=== PATIENT | male | born 1990 | race Caucasian/White ===

== ENCOUNTER 2024-02-12 18:53 | Emergency (ER) | payer OTHER ==
[~2024-02-12] VITALS: Ht 182.9 cm; Wt 131.8 kg
[~2024-02-12 18:53] MED LIST: IBUP-1986 PO
[2024-02-12 19:14] LABS: BASOPHILS # (AUTO) 0.1 X10'3 (0-0.2); EOSINOPHILS # (AUTO) 0.2 X10'3 (0-0.9); MONOCYTES # (AUTO) 0.7 X10'3 (0-0.9); NEUTROPHILS # (AUTO) 5.4 X10'3 (1.8-7.7)
[2024-02-12 19:16] LABS: BASOPHILS % (AUTO) 0.7 % (0-1); HEMATOCRIT 48.2 % (42.0-52.0); HEMOGLOBIN 16.3 g/dl (14.0-17.9); LYMPHOCYTES # (AUTO) 3.5 X10'3 (1.1-4.8); LYMPHOCYTES % (AUTO) 35.5 % (21-51); MEAN CORPUSCULAR HEMOGLOBIN 29.1 PG (27.0-31.0); MEAN CORPUSCULAR HGB CONC 33.8 g/dL (33.0-36.5); MEAN PLATELET VOLUME 9.9 FL (7.4-10.4); MONOCYTES % (AUTO) 7.2 % (2-12); NEUTROPHILS % (AUTO) 54.6 % (42-75); RED CELL DISTRIBUTION WIDTH 13.8 % (11.5-14.5); WHITE BLOOD COUNT 9.9 X10'3 (4.5-11.0)
[2024-02-12 19:30] LABS: APTT 28 SECONDS (22-32); INR 1.1 INR; PROTHROMBIN TIME 11.4 SECONDS (9.0-12.0)
[2024-02-12 19:38] LABS: ALBUMIN 4.5 G/DL (3.4-5.0); ANION GAP 11 (8-16); BLOOD UREA NITROGEN 15 MG/DL (7-18); BUN/CREATININE RATIO 10.3 (10.0-20.0); CALCIUM 9.4 MG/DL (8.5-10.1); CHLORIDE 107 MMOL/L (99-107); CREATININE 1.46 MG/DL (0.60-1.10); GLUCOSE 107 MG/DL (70-104); POTASSIUM 3.6 MMOL/L (3.5-5.1); PRO BRAIN NATRIURETIC PEPTIDE < 30 PG/ML (0-125); SODIUM 141 MMOL/L (135-145); TOTAL CARBON DIOXIDE 23.1 MMOL/L (24-32); eCRCL 80 ML/MIN; eGFR 56 ML/MIN
[2024-02-12 19:50] LABS: PLATELET COUNT 218 X10'3 (140-440)
[2024-02-12 19:55] LABS: CREATINE KINASE 174 U/L (39-308)
[2024-02-12] MEDS: normal saline 1000ML IV soln IVB ONE (20:11)
[2024-02-12 21:52] LABS: BILIRUBIN,URINE SMALL (Neg); CLARITY,URINE CLEAR (Clear); COLOR,URINE YELLOW (Yellow); GLUCOSE, URINE NEGATIVE (Neg); KETONES,URINE 40 mg/dl (Neg); LEUKOCYTE ESTERASE ,URINE NEGATIVE (Neg); NITRITES, URINE NEGATIVE (Neg); OCCULT BLOOD,URINE NEGATIVE (Neg); PROTEIN,URINE NEGATIVE (Neg); UROBILINOGEN,URINE 0.2 E.U/dL (0.2-1.0)
[2024-02-12 22:11] LABS: URINE AMPHETAMINE SCREEN NEGATIVE (Neg); URINE BARBITUATE SCREEN NEGATIVE (Neg); URINE BENZODIAZEPINES SCREEN NEGATIVE (Neg); URINE CANNABINOID SCREEN POSITIVE (Neg); URINE COCAINE SCREEN NEGATIVE (Neg); URINE METHADONE SCREEN NEGATIVE (Neg); URINE PHENCYCLIDINE SCREEN NEGATIVE (Neg)
[2024-02-12 22:16] LABS: UA COLLECTION TYPE URINAL
[2024-02-12 22:39] VITALS: BP 154/93; PULSE 85; RESP 16; TEMP 98.2; O2SAT 96
== END 2024-02-12 22:41 | disposition home or self-care (01) ==
LOC: ER 20:08
DX: R53.1 Weakness (principal); I69.923 Fluency disorder following unspecified cerebrovascular disease; R79.1 Abnormal coagulation profile; Z79.1 Long term (current) use of non-steroidal anti-inflammatories (NSAID); Z98.890 Other specified postprocedural states
CPT/HCPCS: 36415; 70450; 71045; 80048; 80305; 81003; 82542; 82550; 82948; 83880; 84484; 85025; 85610; 85730; 86885; 86900; 86901; 93005; 96360; 99285; J7030

== ENCOUNTER 2025-01-23 16:18 | Emergency (ER) | payer OTHER ==
[~2025-01-23] VITALS: Ht 182.9 cm; Wt 129.7 kg
[2025-01-23 16:47] VITALS: TEMP 99.4
--- NOTE | 2025-01-23 16:54 | VISIT NOTE ---
ED Rapid Medical Assessment History This is a 34-year-old gentleman who comes in for evaluation of near syncopal episode that occurred while sitting. Resolved spontaneously. Not accompanied by chest pain or difficulty breathing. Shortly after the episode he had developed started. He does have known history of bipolar, essential tremor, compliant with his medications. He smokes nicotine, quit marijuana a week ago. No palliating or aggravating factors were elicited with the gentleman. This is similar in identical today episode of near-syncope and started he had developed a year ago at which point he had received evaluation. He even followed up with neurology who told him this was not a neurological issue. Exam: GENERAL: Awake, alert, oriented, GCS 15, no apparent distress, non-toxic appearing, answers questions, follows commands appropriately. HEENT: Atraumatic, normocephalic, pupils equal, extraocular muscles intact, sclerae anicteric, mucus membranes moist, oropharynx is clear, no stridor. NECK: supple, full active range of motion, trachea midline, no thyromegaly, no lymphadenopathy, no JVD. CARDIOVASCULAR: regular rate/rhythm, no murmurs/gallops/rubs, Pulses are 2+ in all extremities and symmetric. Capillary refill less than 2 seconds. PULMONARY: Nonlabored, good air movement ,no respiratory distress, speaking in full sentences, clear to auscultation bilaterally, no wheezing, no ronchi, no rales, no accessory muscle use. GASTROINTESTINAL: Soft, non-tender, non-distended, normal active bowel sounds, no organomegaly, no pulsatile masses, no CVA tenderness. NEUROLOGIC: Lucid with normal mental status. Normal facial symmetry. Moves all extremities symmetrically and with purpose. No truncal ataxia. Speech is fluid without evidence of dysarthria or aphasia, no focal deficits appreciated. MUSCULOSKELETAL: There is full range of motion of all extremities. There is no joint pain or joint swelling or joint erythema. There is no muscle pain or tenderness or swelling. EXTREMITIES: warm, well-perfused, no cyanosis, no clubbing, no edema, no acute deformities. Skin: warm, dry, no rashes or lesions, no jaundice, no petechiae orpurpura. No ecchymosis. PSYCHIATRIC: Normal affect, normal insight, normal concentration. Focused exam: [] NEURO: M/S: Alert and oriented Face: EOMI, face and pharynx with normal sensation and function Motor: Normal strength throughout Sensation: Normal sensation throughout Speech: Normal Cerebellar: Normal coordination Normal gait Assessment and Plan Differential includes but not limited to vasovagal versus orthostatic versus malignant arrhythmia syncope, supratentorial event, starter, clinically there is no evidence of lateralizing signs to suspect a stroke. No evidence of trauma. Dehydration, electrolyte derangement are also in differential diagnosis. We will obtain labs, EKG, Advanced imaging of the head. EKG was obtained and interpreted by myself shows sinus rhythm 79, normal TX interval, narrow QRS, no QT prolongation, normal axis, no STEMI. FLAQUITA STILES DO January 23, 2025 16:54
[2025-01-23] MEDS: normal saline 1000ML IV soln IVB ONE (17:00)
[2025-01-23 17:10] LABS: BASOPHILS # (AUTO) 0.1 X10'3 (0-0.2); EOSINOPHILS # (AUTO) 0.6 X10'3 (0-0.9); EOSINOPHILS % (AUTO) 6.4 % (0-6); HEMATOCRIT 47.2 % (42.0-52.0); HEMOGLOBIN 16.3 g/dl (14.0-17.9); LYMPHOCYTES # (AUTO) 3.9 X10'3 (1.1-4.8); LYMPHOCYTES % (AUTO) 41.9 % (21-51); MEAN CORPUSCULAR HEMOGLOBIN 28.9 PG (27.0-31.0); MEAN CORPUSCULAR HGB CONC 34.6 g/dL (33.0-36.5); MEAN CORPUSCULAR VOLUME 83.6 FL (78-98); MEAN PLATELET VOLUME 10.1 FL (7.4-10.4); MONOCYTES # (AUTO) 0.8 X10'3 (0-0.9); MONOCYTES % (AUTO) 8.7 % (2-12); NEUTROPHILS # (AUTO) 3.9 X10'3 (1.8-7.7); PLATELET COUNT 197 X10'3 (140-440); RED BLOOD COUNT 5.65 X10'6 (4.70-6.10); RED CELL DISTRIBUTION WIDTH 13.8 % (11.5-14.5); WHITE BLOOD COUNT 9.2 X10'3 (4.5-11.0)
[2025-01-23 17:22] LABS: ALANINE AMINOTRANSFERASE 57 U/L (12-78); ALBUMIN 3.9 G/DL (3.4-5.0); ALBUMIN/GLOBULIN RATIO 1.2 (1.1-1.5); ALKALINE PHOSPHATASE 61 IU/L (46-116); ANION GAP 9 (8-16); ASPARTATE AMINO TRANSFERASE 29 U/L (10-37); BILIRUBIN,TOTAL 0.4 MG/DL (0.1-1.0); BLOOD UREA NITROGEN 13 MG/DL (7-18); BUN/CREATININE RATIO 9.2 (10.0-20.0); CALCIUM 8.5 MG/DL (8.5-10.1); CHLORIDE 104 MMOL/L (99-107); CREATININE 1.42 MG/DL (0.60-1.10); GLUCOSE 104 MG/DL (70-104); POTASSIUM 3.8 MMOL/L (3.5-5.1); SODIUM 137 MMOL/L (135-145); TOTAL CARBON DIOXIDE 24.4 MMOL/L (24-32); TOTAL PROTEIN 7.1 G/DL (6.4-8.2); eCRCL 82 ML/MIN; eGFR 58 ML/MIN
--- NOTE | 2025-01-23 17:27 | RADIOLOGY REPORT ---
EXAM: CT CT HEAD INDICATION: Disequilibrium TECHNIQUE: CT of the head without intravenous contrast. Coronal and sagittal reformatted images are s ubmitted. Radiation Dose : 1. Head: CT Dose: CTDI volume is 70.1 mGy. Dose-length product is 1249 mGy*cm The dose indicators for CT are the volume Computed Tomography (CT) Dose Index (CTDIvol) and the Dose Length Product (DLP), and are measured in units of mGy and mGy-cm, respectively. These indicators are not patient dose, but values generated from the CT scanner acquisition factors. The report includes radiation exposure data for exposures received during this examination. All CT scans at this medical facility are performed using dose modulation techniques as appropriate to a performed exam including the following: Automated exposure control was utilized; adjustment of the MA and/or KV according to patient size; and use of iterative reconstruction technique. COMPARISON: CT CT STROKE ALERT on DOS: 02/12/24 FINDINGS: There is no evidence of acute intracranial hemorrhage, extra-axial collection, mass effect, midline s hift, herniation or hydrocephalus. The ventricles, sulci and cisterns are age appropriate. The weldon-white differentiation is intact. The visualized paranasal sinuses and mastoid air cells are clear. No depressed calvarial fracture. The surrounding soft tissues are unremarkable. IMPRESSION: 1. No evidence of acute intracranial abnormality. HS:Y
[2025-01-23 17:28] LABS: MAGNESIUM 1.9 MG/DL (1.5-2.4); PRO BRAIN NATRIURETIC PEPTIDE < 30 PG/ML (0-125)
--- NOTE | 2025-01-23 17:35 | RADIOLOGY REPORT ---
CHEST RADIOGRAPH Indication: Weakness, near-syncope Technique: Single frontal view of the chest was obtained Comparison: DI CHEST,SINGLE VIEW on DOS: 02/12/24 FINDINGS: Lines and Tubes: None Lungs: No focal consolidation. Pleura: No effusion. No pneumothorax. Cardiomediastinal contours: Unremarkable Bones: No acute osseous abnormality. IMPRESSION: 1. No acute cardiopulmonary disease.
[2025-01-23 17:52] VITALS: BP 138/88; PULSE 69; RESP 14; O2SAT 99
--- NOTE | 2025-01-23 17:58 | Physician Documentation ---
History of Present Illness ~ Chief Complaint: Syncope Stated Complaint: NEAR SYNCOPAL Time Seen by MD: 17:53 Primary Medical Doctor: MAX Mode of Arrival: EMS HPI This is a very pleasant 34-year-old gentleman who presents for evaluation of a near syncopal episode that occurred while he was sitting. He developed sensation of in pitting loss of consciousness. No obvious trigger provocation. He had experienced this in the past but typically with the position change. This when was while he remains sitting. No obvious palliating or aggravating factors were elicited with the patient. Did not attempt to treat it. This happened in the past about a year ago at which point he had received evaluation including a neurologist which and told him this was not a neurologic problem. Incidentally he also had developed, just like last time, a stutter. No focal deficits. Denies any chest pain or difficulty breathing accompanying this. No concern for alcohol or illicit substances use. He vapes. He quit marijuana a week ago. Medication Reconciliation Allergies: Coded Allergies: No Known Allergies (Unverified , 02/12/24) Scheduled Ibuprofen (Ibuprofen), 1 TAB PO Q8H Past Medical History Past Medical History: Bipolar Past Surgical History: tonsillectomy Lives In: Home Occupation: employed Review of Systems ROS 10 point review of systems was performed and unless noted above in HPI is negative for acute process/complaint. Physical Exam Vital Signs: Temperature: 99.4, Source: Oral, Heart Rate: 69, Respiratory Rate: 14, BP: 138/88, Pulse Oximetry: 99, Weight: 129.700 Physical Exam GENERAL: Awake, alert, oriented, GCS 15, no apparent distress, non-toxic appearing, answers questions, follows commands appropriately. HEENT: Atraumatic, normocephalic, pupils equal, extraocular muscles intact, sclerae anicteric, mucus membranes moist, oropharynx is clear, no stridor. NECK: supple, full active range of motion, trachea midline, no thyromegaly, no lymphadenopathy, no JVD. CARDIOVASCULAR: regular rate/rhythm, no murmurs/gallops/rubs, Pulses are 2+ in all extremities and symmetric. Capillary refill less than 2 seconds. PULMONARY: Nonlabored, good air movement ,no respiratory distress, speaking in full sentences, clear to auscultation bilaterally, no wheezing, no ronchi, no rales, no accessory muscle use. GASTROINTESTINAL: Soft, non-tender, non-distended, normal active bowel sounds, no organomegaly, no pulsatile masses, no CVA tenderness. NEUROLOGIC: Lucid with normal mental status. Normal facial symmetry. Moves all extremities symmetrically and with purpose. No truncal ataxia. Speech is fluid without evidence of dysarthria or aphasia, no focal deficits appreciated. MUSCULOSKELETAL: There is full range of motion of all extremities. There is no joint pain or joint swelling or joint erythema. There is no muscle pain or tenderness or swelling. EXTREMITIES: warm, well-perfused, no cyanosis, no clubbing, no edema, no acute deformities. Skin: warm, dry, no rashes or lesions, no jaundice, no petechiae orpurpura. No ecchymosis. PSYCHIATRIC: Normal affect, normal insight, normal concentration. Focused exam: NEURO: M/S: Alert and oriented Face: EOMI, face and pharynx with normal sensation and function Motor: Normal strength throughout Sensation: Normal sensation throughout Speech: Normal Cerebellar: Normal coordination Normal gait Progress Results/Orders Results/Orders Orders - FLAQUITA STILES DO Electrocardiogram (01/23/25 16:32) Chest,Single View (01/23/25 16:50) Ct Head (01/23/25 17:00) Hs Troponin I W Calculations (01/23/25 18:50) Completed Orders - FLAQUITA STILES DO Cbc/Diff (01/23/25 16:50) Chest,Single View (01/23/25 16:50) PBNP (01/23/25 16:50) MG (01/23/25 16:50) Normal Saline 1000ml (Sodium Chloride 10 (01/23/25 16:50) Ct Head (01/23/25 17:00) CMP (01/23/25 16:50) Hs Troponin I W Calculations (01/23/25 16:50) Medications Received in ER Medications (Trade) Dose Ordered Sig/Yesi Route PRN Reason Start Time Stop Time Status Last Admin Dose Admin (sodium chloride 1000ml IV soln) 1,000 ml ONCE ONCE IVB 01/23/25 16:50 01/23/25 16:52 DC 01/23/25 17:00 1,000 ML Vital Signs 01/23/25 01/23/25 01/23/25 01/23/25 16:31 16:42 16:47 17:33 Temp 99.4 99.4 Pulse 76 73 65 Resp 10 15 14 16 B/P (MAP) 144/89 150/96 (114) 135/86 (102) Pulse Ox 98 98 99 01/23/25 17:52 Pulse 69 Resp 14 B/P (MAP) 138/88 (105) Pulse Ox 99 Laboratory Tests Test 01/23/25 16:59 White Blood Count 9.2 Red Blood Count 5.65 Hemoglobin 16.3 Hematocrit 47.2 Mean Corpuscular Volume 83.6 Mean Corpuscular Hemoglobin 28.9 Mean Corpuscular Hemoglobin Concent 34.6 Red Cell Distribution Width 13.8 Platelet Count 197 Mean Platelet Volume 10.1 Neutrophils (%) (Auto) 42.0 Lymphocytes (%) (Auto) 41.9 Monocytes (%) (Auto) 8.7 Eosinophils (%) (Auto) 6.4 H Basophils (%) (Auto) 1.0 Neutrophils # (Auto) 3.9 Lymphocytes # (Auto) 3.9 Monocytes # (Auto) 0.8 Eosinophils # (Auto) 0.6 Basophils # (Auto) 0.1 CBC Comment Sodium Level 137 Potassium Level 3.8 Chloride Level 104 Carbon Dioxide Level 24.4 Anion Gap 9 Blood Urea Nitrogen 13 Creatinine 1.42 H Estimated GFR/1.73 m2 58 BUN/Creatinine Ratio 9.2 L Glucose Level 104 Calcium Level 8.5 Magnesium Level 1.9 Total Bilirubin 0.4 Aspartate Amino Transf (AST/SGOT) 29 Alanine Aminotransferase (ALT/SGPT) 57 Alkaline Phosphatase 61 Troponin I High Sensitivity 4 Pro-B-Type Natriuretic Peptide < 30 Total Protein 7.1 Albumin 3.9 Globulin 3.2 Albumin/Globulin Ratio 1.2 Chemistry Comments Medical Decision Making Findings Facility Status: ED Holds, E process The plan was discussed with the patient, who demonstrates clear understanding of the plan and is in agreement with the plan unless otherwise noted in the chart. All questions have been answered, all concerns were addressed unless otherwise documented. I was available throughout their ED stay for frequent reassessment and qu estions. Differential Diagnoses (considered and possible or likely): [Vasovagal versus orthostatic versus less likely malignant arrhythmia with a syncope, unlikely to be PE as he is PERC negative, unlikely to be ACS or CHF.] ??Differential Diagnoses (considered and unlikely, not requiring evaluation currently): [No evidence of lateralizing signs to suspect a stroke] MDM Data Please see HPI for the following: Independent Historians and external Records Review. Historian: [Patient] Independent Historians: ?[None] Medication Management: [Reviewed medication list] Social History and determinants: [Reviewed] Please see the body of the note for the following: Any independent interpretations of ECG, imaging studies. All vitals signs/haemodynamics, ordered tests were independently reviewed and interpreted by myself. Nursing triage complaint and vitals reviewed, additional nursing notes were reviewed as available and I agree unless otherwise noted or documented in contradiction in the chart Vital Signs: Independently reviewed Labs: Independently interpreted Imaging: Independently interpreted Old Medical Records: Independently reviewed, see HPI for relevant summary and information Pulse Oximetry: [98%] interpreted as [normal on room air] by me [Tax Compliance Officer: [Regular Rate, Regular rhythm, no ectopy, NSR] reviewed and interpreted by me] Additionally notably showing: [Hemodynamically stable. Laboratory workup was unremarkable including negative troponin and negative BNP. CT head was unremarkable. No explanation for a stutter. Chest x-ray is unremarkable.] Tests considered but not ordered include: [MRI, EEG can be done on an outpatient basis] Social Determinants of Health Impact: Patient was evaluated in [facility], [facility] [place] to healthcare due to below par ratio of patient to medical providers. [] Comorbid Conditions Impacting Present Evaluation and Care/Treatment: [History of bipolar, history of near-syncope, history of stutter] Management Discussions with other Healthcare Providers: [None] Treatment and Disposition Medication Management (Given or considered): []. See EMR for details Consideration for Hospitalization/Escalation/Deescalation of Care: Admission for observation has been considered, [however the patient is able to tolerate p.o., their symptoms are controlled, they are able to rely on oral medications, and their chief complaint/diagnosis can be managed on outpatient basis.] ?ED Course:?[No clinical deterioration. Started is improving. Had extensive discussion of results with the patient and his family. He will need a follow-up with Neurology and Cardiology.] ?Shared decision making:?[Patient is hemodynamically stable for discharge home with follow with their primary care provider. [ ] Specific and cautious return precautions provided and discussed with full understanding. Any incidental findings were also discussed and follow up recommendations given. [] All questions answered. Patient/family were able to verbalize back return precautions. Patient/family agree to plan. Copies of imaging and laboratory studies were provided.] Code status:?FULL Please see the full Electronic Medical Record for full details of nursing documentation, medications list, other records of complete past medical history and conditions, vital signs, laboratory studies, and any radiologic study interpretations by radiologists. Portions of this note were completed using [employer] dictation software and as a result there may exist minor errors in spelling. I have reviewed elements of past family and social history and agree as included in note. Departure Disposition: HOME / SELF CARE / HOMELESS Impression: Primary Impression: Near syncope Additional Impression: Stutter Condition: Improved Discharge Instructions: Near-Syncope Referrals: NO PRIMARY CARE PROVIDER (PCP) Education Educated: Patient, Family Educated regarding: diagnosis, treatment, prognosis, need for follow up Signature Scribe Signature: No scribe Attestation: This note accurately reflects clinical decisions, work performed by myself, DO GO Skinner NICHOLAS M DO January 23, 2025 17:58
--- NOTE | 2025-01-24 05:26 | ELECTROCARDIOGRAPH REPORT ---
[facility] Test Date: 2025-01-23 Test Time: 16:43:06 Pat Name: KAREN SCHILLING Department: EMERGENCY ROOM Room: Gender: M Proposal Writer: MICA : 1990 Requested By: FLAQUITA STILES Order Number: [id number] Reading MD: Dr. Kirt Araujo Measurements Intervals [place] Rate: 79 P: 63 NH: 139 QRS: 57 QRSD: 98 T: 61 QT: 379 QTc: 435 Interpretive Statements Sinus rhythm Low voltage, precordial leads Electronically Signed On 01-25-2025 21:44:[address] Kirt Araujo Please click the below link to view image of tracing.
== END 2025-01-23 18:03 | disposition home or self-care (01) ==
LOC: ER 16:18
DX: R55 Syncope and collapse (principal); Z90.89 Acquired absence of other organs
CPT/HCPCS: 36415; 70450; 71045; 80053; 83735; 83880; 84484; 85025; 93005; 96360; 99285; J7030